=== PATIENT | male | born 1985 | race Caucasian/White ===

== ENCOUNTER → 2018-12-31 | Outpatient (CLI) | payer OTHER ==
--- NOTE | 2019-01-03 02:50 | MR ---
EXAMINATION TYPE: MR hand LT wo con DATE OF EXAM: 12/31/2018 COMPARISON: HISTORY: Hand pain /Left Thumb pain, decreased range of motion in thumb, Rule out UCL Tear Standard multiplanar, multisequence MRI departmental protocol Multiplanar, multisequence images of the left hand were acquired. Diffusion weighted imaging was perf ormed. FINDINGS: Exam is concentrating on the film. The first metacarpal appears intact. There is a 6 mm tri angular-shaped area of decreased signal on the T2 coronal image 34 that could be an avulsion chip fra cture of the anterior base of the proximal phalanx of the thumb. There is no dislocation. There is no significant joint fluid. The flexor pollicis longus tendon appears intact. Extensor tendon appears i ntact. IMPRESSION: There appears to be at chip fracture of the base of the proximal phalanx of the thumb on the ulnar si de consistent with ulnar collateral ligament avulsion injury. Comparison with hand x-ray would be hel pful.
== END | disposition home or self-care (01) ==
LOC: RADMRIMAIN 18:27
PROVIDERS: ATTEND Orthopaedic Surgery Hand Surgery
DX: M79.642 Pain in left hand (principal)